=== PATIENT | female | born 1995 | race Caucasian/White ===

== ENCOUNTER 2016-10-27 18:38 | Emergency (ER) | payer MEDICAID ==
[~2016-10-27] VITALS: Ht 162.6 cm; Wt 64.4 kg
[~2016-10-27 18:38] MED LIST: CLON1TAB PO; CLONADINE PO; FLUO10TA PO; FLUO20CA19 PO; LISD40CA PO; PNV1TABL11 PO
[2016-10-27] MEDS ORDERED: SODIUM CHLORIDE 0.9% 1,000ML IVBOLUS ONE (19:30)
[2016-10-27] MEDS ORDERED: SODIUM CHLORIDE FLUSH 10ML SYR IVF ONE (19:30)
[2016-10-27] MEDS ORDERED: ONDANSETRON 2MG/ML, 2ML IVPush ONE (19:30)
[2016-10-27] MEDS ORDERED: KETOROLAC 30 MG/1 ML ONE (19:53)
[2016-10-27] MEDS ORDERED: ONDANSETRON 2MG/ML, 2ML ONE (19:54)
[2016-10-27 19:55] LABS: BLOOD UREA NITROGEN 8 mg/dL (7-18)
[2016-10-27] MEDS ORDERED: KETOROLAC 30 MG/1 ML IVPush ONE (20:00)
[2016-10-27 21:30] VITALS: BP 125/50
== END 2016-10-27 21:32 | disposition home or self-care (01) ==
LOC: ED 21:26
DX: R10.2 Pelvic and perineal pain (principal)
CPT/HCPCS: 36415; 76830; 80048; 81003; 82040; 84703; 85025; 96374; 96375; 99285; J1885; J2405

== ENCOUNTER 2017-01-21 20:29 | Observation (INO) | payer MEDICAID ==
[~2017-01-21] VITALS: Ht 162.6 cm; Wt 53.5 kg
[~2017-01-21 20:29] MED LIST changes: -LISD40CA PO; +LISD40CA3 PO
[2017-01-21 21:08] LABS: HEMATOCRIT 39.2 % (34.6-47.8); HEMOGLOBIN 13.1 g/dL (11.7-16.4); WHITE BLOOD COUNT 6.3 x10^3/uL (3.4-10)
[2017-01-21 21:18] LABS: ASPARTATE AMINO TRANSFERASE 14 U/L (15-37); BLOOD UREA NITROGEN 6 mg/dL (7-18)
[2017-01-21] MEDS ORDERED: SODIUM CHLORIDE 0.9% 1,000 ML IV ONE (23:01)
[2017-01-21] MEDS ORDERED: SODIUM CHLORIDE 0.9% 1,000ML IVBOLUS ONE (23:30)
[2017-01-21] MEDS ORDERED: SODIUM CHLORIDE FLUSH 10ML SYR IVF ONE (23:30)
[2017-01-21] MEDS ORDERED: SODIUM CHLORIDE FLUSH 10ML SYR IVF PRN (23:30)
[2017-01-22 01:28] VITALS: BP 123/85
[2017-01-22 02:00] VITALS: BP 120/86
== END 2017-01-22 09:02 | disposition home or self-care (01) ==
LOC: ED 22:39 → EDIP 23:01 → INTOOBSV 23:01 → 3NE 23:43 → UNDODISIN 01-22 09:02
PROVIDERS: ADMIT Obstetrics & Gynecology; ATTEND Obstetrics & Gynecology
DX: O26.891 Other specified pregnancy related conditions, first trimester (principal); R10.32 Left lower quadrant pain; O34.81 Maternal care for other abnormalities of pelvic organs, first trimester; N83.202 Unspecified ovarian cyst, left side; Z3A.01 Less than 8 weeks gestation of pregnancy; M22.40 Chondromalacia patellae, unspecified knee
CPT/HCPCS: 36415; 76801; 80053; 81003; 84702; 85025; 86850; 86900; 86901; 96360; 96361; 99285; G0378; J7030

== ENCOUNTER 2017-01-31 21:11 | Emergency (ER) | payer MEDICAID ==
[~2017-01-31] VITALS: Ht 162.6 cm; Wt 62.8 kg
[2017-01-31 22:12] LABS: HEMATOCRIT 35.5 % (34.6-47.8); HEMOGLOBIN 11.8 g/dL (11.7-16.4); WHITE BLOOD COUNT 5.7 x10^3/uL (3.4-10)
[2017-01-31 23:34] VITALS: BP 106/76
== END 2017-01-31 23:36 | disposition home or self-care (01) ==
LOC: ED 22:19
DX: O46.91 Antepartum hemorrhage, unspecified, first trimester (principal); Z3A.01 Less than 8 weeks gestation of pregnancy
CPT/HCPCS: 36415; 81003; 84702; 85025; 99284

== ENCOUNTER 2017-03-12 14:40 | Emergency (ER) | payer MEDICAID ==
[~2017-03-12] VITALS: Ht 162.6 cm; Wt 62.0 kg
[2017-03-12 16:49] VITALS: BP 123/64
== END 2017-03-12 16:55 | disposition home or self-care (01) ==
LOC: ED 15:15
DX: O9A.211 Injury, poisoning and certain other consequences of external causes complicating pregnancy, first trimester (principal); G89.11 Acute pain due to trauma; Z3A.12 12 weeks gestation of pregnancy; W19.XXXA Unspecified fall, initial encounter; Y93.89 Activity, other specified; Y92.89 Other specified places as the place of occurrence of the external cause; Y99.8 Other external cause status
CPT/HCPCS: 76801; 99284

== ENCOUNTER 2017-09-15 17:17 | Inpatient (IN) | payer MEDICAID ==
[~2017-09-15] VITALS: Ht 162.6 cm; Wt 73.0 kg
[~2017-09-15 17:17] MED LIST changes: +PREN1TAB10 PO
[2017-09-15] MEDS ORDERED: SODIUM CHLORIDE FLUSH 10ML SYR IVF ONE (18:00)
[2017-09-15 18:24] LABS: BASOPHILS # (AUTO) 0.01 x10^3/uL (0-0.1); BASOPHILS % (AUTO) 0 % (0-1); EOSINOPHILS % (AUTO) 2 % (1-7); LYMPHOCYTES # (AUTO) 2.29 x10^3/uL (1-3.4); LYMPHOCYTES % (AUTO) 50 % (22-44); MD NO; MEAN CORPUSCULAR HEMOGLOBIN 29.4 pg (27.0-34.8); MEAN CORPUSCULAR HGB CONC 33.3 g/dL (32.4-35.8); MEAN CORPUSCULAR VOLUME 88.3 fL (80-100); MEAN PLATELET VOLUME 9.2 fL (7.4-10.4); MONOCYTES # (AUTO) 0.42 x10^3/uL (0.2-0.8); MONOCYTES % (AUTO) 9 % (2-9); NEUTROPHILS # (AUTO) 1.75 x10^3/uL (1.8-6.8); NEUTROPHILS % (AUTO) 38 % (42-75); PLATELET COUNT 259 x10^3/uL (130-400); RED BLOOD COUNT 3.99 x10^6/uL (3.82-5.3); RED CELL DISTRIBUTION WIDTH 12.9 % (9.6-15.2)
[2017-09-15 18:31] LABS: ALANINE AMINOTRANSFERASE 34 U/L (12-78); ALBUMIN 2.8 g/dL (3.4-5.0); ANION GAP 7 mmol/L (5-15); CALCIUM 7.9 mg/dL (8.5-10.1); CHLORIDE 114 mmol/L (98-107); CREATININE 0.77 mg/dL (0.55-1.02)
[2017-09-15 18:33] LABS: CULTURE INDICATED? YES; MICROSCOPIC INDICATED
[2017-09-15 18:36] LABS: ALKALINE PHOSPHATASE 183 U/L (45-117); BILIRUBIN,TOTAL 0.3 mg/dL (0.2-1.0); FREE T4 (FREE THYROXINE) 0.95 ng/dL (0.76-1.46); TOTAL PROTEIN 6.5 g/dL (6.4-8.2); TROPONIN I < 0.015 ng/mL (0.000-0.045)
[2017-09-15] MEDS ORDERED: hydrALAzine 20 MG/ML, 1ML IV ONE (19:30)
[2017-09-15] MEDS ORDERED: hydrALAzine 20 MG/ML, 1ML ONE (19:41)
[2017-09-15] MEDS ORDERED: POLYETHYLENE GLYCOL 17 GM PACKET PO PRN (20:00)
[2017-09-15] MEDS ORDERED: BISACODYL 10 MG SUPP PR PRN (20:00)
[2017-09-15] MEDS ORDERED: hydrALAzine 20 MG/ML, 1ML IVPush PRN (20:00)
[2017-09-15 20:29] VITALS: BP 143/78
[2017-09-15] MEDS: SODIUM CHLORIDE FLUSH 10ML SYR IVF SCH (21:46)
[2017-09-15] MEDS: ACETAMINOPHEN 325 MG TABLET PO PRN (22:14)
[2017-09-16 00:45] LABS: TROPONIN I < 0.015 ng/mL (0.000-0.045)
[2017-09-16 03:30] VITALS: BP 126/80
[2017-09-16 05:15] LABS: MEAN CORPUSCULAR HEMOGLOBIN 29.3 pg (27.0-34.8); MEAN CORPUSCULAR VOLUME 88.8 fL (80-100); MEAN PLATELET VOLUME 8.9 fL (7.4-10.4); PLATELET COUNT 273 x10^3/uL (130-400); RED BLOOD COUNT 4.01 x10^6/uL (3.82-5.3); RED CELL DISTRIBUTION WIDTH 13.2 % (9.6-15.2)
[2017-09-16 05:50] LABS: MD YES
[2017-09-16 05:52] LABS: LYMPH#(MANUAL) 2.18 x10^3/uL (1-3.4); LYMPHS% (MANUAL) 56 % (22-44); MONOS% (MANUAL) 5 % (2-9); SEG#(MANUAL) 1.52 x10^3/uL (1.8-6.8); SEGS% (MANUAL) 39 % (42-75)
[2017-09-16 05:53] LABS: <PLATELET ESTIMATE> ADEQUATE; <PLT MORPHOLOGY> NORMAL PLT MORPH; <RBC MORPHOLOGY> NORMAL
[2017-09-16 06:51] LABS: ALANINE AMINOTRANSFERASE 29 U/L (12-78); ALBUMIN 2.7 g/dL (3.4-5.0); ANION GAP 10 mmol/L (5-15); CALCIUM 7.9 mg/dL (8.5-10.1); CHLORIDE 116 mmol/L (98-107); CREATININE 0.77 mg/dL (0.55-1.02)
[2017-09-16 06:55] LABS: ALKALINE PHOSPHATASE 168 U/L (45-117); BILIRUBIN,TOTAL 0.5 mg/dL (0.2-1.0); TOTAL PROTEIN 6.2 g/dL (6.4-8.2); TROPONIN I < 0.015 ng/mL (0.000-0.045)
[2017-09-16 07:12] VITALS: BP 139/80
[2017-09-16] MEDS: SENNA/DOCUSATE TABLET PO SCH (07:53)
[2017-09-16] MEDS: SODIUM CHLORIDE FLUSH 10ML SYR IVF SCH ×2 (07:54→21:00)
[2017-09-16] MEDS: ACETAMINOPHEN 325 MG TABLET PO PRN (07:58)
[2017-09-16 14:43] VITALS: BP 128/75
[2017-09-16 19:03] VITALS: BP 121/72
[2017-09-17 01:40] VITALS: BP 149/85
[2017-09-17 07:19] VITALS: BP 117/77
[2017-09-17] MEDS: SODIUM CHLORIDE FLUSH 10ML SYR IVF SCH (09:07)
[2017-09-17] MEDS: SENNA/DOCUSATE TABLET PO SCH (09:07)
== END 2017-09-17 11:35 | disposition home or self-care (01) | DRG 776 ==
LOC: ED 19:40 → EDIP 20:04 → 5SO 20:15 → DCLOUNGE 09-17 11:30
PROVIDERS: ADMIT Hospitalist; ATTEND Hospitalist
DX: O99.43 Diseases of the circulatory system complicating the puerperium (principal); E87.0 Hyperosmolality and hypernatremia; E44.0 Moderate protein-calorie malnutrition; E87.1 Hypo-osmolality and hyponatremia; I10 Essential (primary) hypertension; O16.5 Unspecified maternal hypertension, complicating the puerperium; O99.89 Other specified diseases and conditions complicating pregnancy, childbirth and the puerperium; Z82.49 Family history of ischemic heart disease and other diseases of the circulatory system; R07.89 Other chest pain; Z68.27 Body mass index [BMI] 27.0-27.9, adult; I49.8 Other specified cardiac arrhythmias
CPT/HCPCS: 36415; 71045; 80053; 81001; 83735; 83880; 84439; 84443; 84484; 85025; 85379; 87086; 87147; 93005; 93306; 93970; 96374; J0360

== ENCOUNTER 2018-01-21 11:40 | Emergency (ER) | payer MEDICAID ==
[~2018-01-21] VITALS: Ht 162.6 cm; Wt 60.0 kg
[2018-01-21 11:52] VITALS: BP 106/65
== END 2018-01-21 12:05 | disposition left against medical advice (07) ==
LOC: ED 11:59
DX: R07.9 Chest pain, unspecified (principal); Z53.21 Procedure and treatment not carried out due to patient leaving prior to being seen by health care provider
CPT/HCPCS: 93005

== ENCOUNTER 2018-03-18 19:56 | Emergency (ER) | payer MEDICAID ==
[~2018-03-18] VITALS: Ht 162.6 cm; Wt 60.2 kg
[2018-03-18 20:14] VITALS: BP 108/76
== END 2018-03-18 21:43 | disposition home or self-care (01) ==
LOC: ED 20:31
DX: S16.1XXA Strain of muscle, fascia and tendon at neck level, initial encounter (principal); W01.0XXA Fall on same level from slipping, tripping and stumbling without subsequent striking against object, initial encounter; Y93.89 Activity, other specified; Y92.89 Other specified places as the place of occurrence of the external cause; Y99.8 Other external cause status
CPT/HCPCS: 71046; 72050; 99284

== ENCOUNTER 2018-08-06 11:18 | Emergency (ER) | payer MEDICAID ==
[~2018-08-06] VITALS: Ht 162.6 cm; Wt 58.0 kg
--- NOTE | 2018-08-06 12:02 | NUR ---
PT TO ROOM AFTER XRAY
--- NOTE | 2018-08-06 12:12 | NUR ---
PT PRESENTS TO ED WITH INCRAESED HR/PALPITATIONS AFTER GLF. EXREMETIY XRAY DONE. PT C/O 10 CP, HR 103
[2018-08-06 12:14] VITALS: BP 132/49
== END 2018-08-06 12:46 | disposition home or self-care (01) ==
LOC: ED 12:20
DX: S60.222A Contusion of left hand, initial encounter (principal); R07.89 Other chest pain; M22.40 Chondromalacia patellae, unspecified knee; Z98.890 Other specified postprocedural states; W19.XXXA Unspecified fall, initial encounter; Y93.89 Activity, other specified; Y92.89 Other specified places as the place of occurrence of the external cause; Y99.8 Other external cause status
CPT/HCPCS: 71046; 93005; 99283

== ENCOUNTER 2018-08-25 08:24 | Emergency (ER) | payer MEDICAID ==
[~2018-08-25] VITALS: Ht 162.6 cm; Wt 58.0 kg
--- NOTE | 2018-08-25 08:45 | NUR ---
PT AMBULATORY TO ROOM 14 W/ C/O ITCHING, BURNING STARTED 3 DAYS AGO. PT ALSO STATES DIFFUSE LOWER PELVIC ABD PAIN X 3 DAYS ON/OFF. PT RATES PAIN 06/09. PT IS CONCERNED SHE STATES SHE JUST GOT A NEW SEXUAL PARTNER. DENIES DC AT THIS TIME. PT RESTING ON GURNEY. HONEYCUTT.
--- NOTE | 2018-08-25 08:49 | NUR ---
REPORT GIVEN TO PRANEETH STAHL.
[2018-08-25] MEDS ORDERED: AZITHROMYCIN 250 MG TABLET PO ONE (09:00)
[2018-08-25] MEDS ORDERED: CEFTRIAXONE 250 MG IM ONE (09:00)
[2018-08-25 09:10] LABS: HCG UR SG 1.035 (1.003-1.030)
--- NOTE | 2018-08-25 09:17 | NUR ---
provider at bedside performing pelvic exam
[2018-08-25 09:25] LABS: MICROSCOPIC INDICATED
--- NOTE | 2018-08-25 09:25 | NUR ---
Provider to cancel abx after exam/discussion w/ patient-editorial writer charted as not admin per provider
[2018-08-25 09:26] LABS: CULTURE INDICATED? YES
--- NOTE | 2018-08-25 09:50 | NUR ---
Resting in bed w/ call jessica in hand/side rails up. Given water/saltines/ additional blanket provided. updated on estimated eta. (testing results almost nearly completed)
[2018-08-25 10:08] LABS: CLUE CELLS NONE SEEN (NONE SEEN); WET PREP WBCS NONE SEEN (FEW)
--- NOTE | 2018-08-25 10:15 | NUR ---
reviewed plan for repeat diflucan admin ( take in 3 days if vaginal discomfort/discharge remains). advised to watch for call back w/ potential culture results. to return for further care if sxs persist or worsen
[2018-08-25] MEDS ORDERED: FLUCONAZOLE 100 MG TABLET ONE (10:18)
[2018-08-25 10:28] VITALS: BP 101/58
[2018-08-25] MEDS ORDERED: FLUCONAZOLE 100 MG TABLET PO ONE (10:30)
== END 2018-08-25 10:31 | disposition home or self-care (01) ==
LOC: ED 10:10
DX: B37.3 Candidiasis of vulva and vagina (principal)
CPT/HCPCS: 81001; 81025; 87086; 87210; 87491; 87591; 87808; 99283

== ENCOUNTER 2018-08-30 02:27 | Emergency (ER) | payer MEDICAID ==
[~2018-08-30] VITALS: Ht 162.6 cm; Wt 57.2 kg
[2018-08-30 02:29] VITALS: BP 102/70
--- NOTE | 2018-08-30 02:45 | NUR ---
PT. C/O VAGINAL ITCHING X 1 WEEK; WAS SEEN HERE AND GIVEN DIFLUCAN. STILL ITCHING. PEYMAN REYNA HAS BEEN IN TO [facility]. PT. IN GOWN NOW.
== END 2018-08-30 03:32 | disposition home or self-care (01) ==
LOC: ED 03:10
DX: B37.3 Candidiasis of vulva and vagina (principal)
CPT/HCPCS: 99283

== ENCOUNTER 2018-10-09 08:34 | Emergency (ER) | payer MEDICAID ==
[~2018-10-09] VITALS: Ht 162.6 cm; Wt 56.7 kg
--- NOTE | 2018-10-09 08:41 | NUR ---
ABD PAIN, ONSET THIS AM,+ NAUSEA, "KNOT IN UMBILICAL AREA" per triage note pt walked in the rm with stable gait from marilin
--- NOTE | 2018-10-09 08:49 | NUR ---
pt is in rm vss stable pt stated " i drank a lot of alcohol a lot last night "
[2018-10-09] MEDS ORDERED: MAALOX/HYOSCYAMINE/LIDOCAINE 45 ML BTL PO ONE (09:00)
[2018-10-09] MEDS ORDERED: MAALOX/HYOSCYAMINE/LIDOCAINE 45 ML BTL ONE (09:05)
--- NOTE | 2018-10-09 09:09 | NUR ---
given urine cup for ua and gi cocktail for pain
--- NOTE | 2018-10-09 09:26 | NUR ---
mindy in lab pt is talkin on the phone vss stable
[2018-10-09 09:28] LABS: BASOPHILS # (AUTO) 0.02 x10^3/uL (0-0.1); BASOPHILS % (AUTO) 1 % (0-1); EOSINOPHILS # (AUTO) 0.03 x10^3/uL (0-0.4); EOSINOPHILS % (AUTO) 1 % (1-7); LYMPHOCYTES # (AUTO) 1.77 x10^3/uL (1-3.4); LYMPHOCYTES % (AUTO) 49 % (22-44); MD NO; MEAN CORPUSCULAR HGB CONC 33.6 g/dL (32.4-35.8); MEAN CORPUSCULAR VOLUME 86.5 fL (80-100); MONOCYTES # (AUTO) 0.45 x10^3/uL (0.2-0.8); MONOCYTES % (AUTO) 13 % (2-9); NEUTROPHILS # (AUTO) 1.32 x10^3/uL (1.8-6.8); NEUTROPHILS % (AUTO) 37 % (42-75); PLATELET COUNT 231 x10^3/uL (130-400); RED BLOOD COUNT 4.33 x10^6/uL (3.82-5.3); RED CELL DISTRIBUTION WIDTH 14.1 % (9.6-15.2)
[2018-10-09 09:29] LABS: ALANINE AMINOTRANSFERASE 70 U/L (12-78); ALBUMIN 3.6 g/dL (3.4-5.0); ANION GAP 3 mmol/L (5-15); CALCIUM 8.1 mg/dL (8.5-10.1); CHLORIDE 111 mmol/L (98-107); CREATININE 0.79 mg/dL (0.55-1.02)
[2018-10-09 09:34] LABS: ALKALINE PHOSPHATASE 106 U/L (45-117); BILIRUBIN,TOTAL 0.2 mg/dL (0.2-1.0)
[2018-10-09 09:39] LABS: MICROSCOPIC NOT IND
[2018-10-09 09:47] LABS: CULTURE INDICATED? NO
[2018-10-09] MEDS ORDERED: POTASSIUM CHLORIDE 20 MEQ TAB.ER.PRT PO ONE (10:30)
[2018-10-09] MEDS ORDERED: POTASSIUM CHLORIDE 20 MEQ TAB.ER.PRT ONE (11:02)
--- NOTE | 2018-10-09 11:23 | NUR ---
given med k dur and dc instruction pt understood well
[2018-10-09 11:24] VITALS: BP 110/68
== END 2018-10-09 11:26 | disposition home or self-care (01) ==
LOC: ED 09:40
DX: K29.00 Acute gastritis without bleeding (principal); E87.6 Hypokalemia
CPT/HCPCS: 36415; 80053; 81003; 83690; 84703; 85025; 99283

== ENCOUNTER 2018-10-24 22:40 | Emergency (ER) | payer MEDICAID ==
[~2018-10-24] VITALS: Ht 162.6 cm; Wt 60.1 kg
--- NOTE | 2018-10-24 23:03 | NUR ---
PT RESTING ON GURNEY WITH HEADPHONES IN PLACE. HAVING PAINFUL URINATION AND NOTICES BLOOD WHEN SHE WIPES. PT HAD UNPROTECTED SEX 3 DAYS AGO. HAS HISTORY OF OVARIAN CYST AND IS WORRIED ONE RUPTURED.
[2018-10-24 23:42] LABS: CULTURE INDICATED? YES; HCG UR SG 1.009 (1.003-1.030); MICROSCOPIC AUTO
[2018-10-24] MEDS ORDERED: NITROFURANTOIN (MACROBID) 100 MG CAPSULE ONE (23:55)
[2018-10-25] MEDS ORDERED: NITROFURANTOIN (MACROBID) 100 MG CAPSULE PO ONE
--- NOTE | 2018-10-25 00:05 | NUR ---
Patient/Caregiver given discharge instructions and they have confirmed that they understand the instructions. Patient ambulatory with steady gait.
[2018-10-25 00:06] VITALS: BP 120/76
== END 2018-10-25 00:08 | disposition home or self-care (01) ==
LOC: ED 23:13
DX: N30.00 Acute cystitis without hematuria (principal)
CPT/HCPCS: 81001; 81025; 87077; 87086; 87186; 99283

== ENCOUNTER 2018-11-15 09:30 | Emergency (ER) | payer MEDICAID ==
--- NOTE | 2018-11-15 09:45 | NUR ---
CALLED NOT IN LOBBY
--- NOTE | 2018-11-15 09:50 | NUR ---
SECOND CALL NO ANSWER.
--- NOTE | 2018-11-15 10:18 | NUR ---
NOT IN LOBBY
== END 2018-11-15 10:20 | disposition left against medical advice (07) ==
LOC: ED 10:14

== ENCOUNTER 2019-01-16 10:40 | Emergency (ER) | payer MEDICAID ==
[~2019-01-16] VITALS: Ht 162.6 cm; Wt 59.0 kg
[2019-01-16 10:43] VITALS: BP 112/58
== END 2019-01-16 11:43 | disposition home or self-care (01) ==
LOC: ED 11:24
DX: S61.215A Laceration without foreign body of left ring finger without damage to nail, initial encounter (principal); X58.XXXA Exposure to other specified factors, initial encounter; Y93.89 Activity, other specified; Y92.89 Other specified places as the place of occurrence of the external cause; Y99.8 Other external cause status
CPT/HCPCS: 29130; 99283

== ENCOUNTER 2019-03-24 22:49 | Emergency (ER) | payer MEDICAID ==
[~2019-03-24] VITALS: Ht 162.6 cm; Wt 59.0 kg
[2019-03-24 23:21] LABS: BASOPHILS # (AUTO) 0.02 x10^3/uL (0-0.1); BASOPHILS % (AUTO) 0 % (0-1); EOSINOPHILS # (AUTO) 0.09 x10^3/uL (0-0.4); EOSINOPHILS % (AUTO) 1 % (1-7); LYMPHOCYTES # (AUTO) 2.34 x10^3/uL (1-3.4); LYMPHOCYTES % (AUTO) 34 % (22-44); MD NO; MEAN CORPUSCULAR HEMOGLOBIN 29.7 pg (27.0-34.8); MEAN CORPUSCULAR HGB CONC 32.5 g/dL (32.4-35.8); MEAN CORPUSCULAR VOLUME 91.4 fL (80-100); MEAN PLATELET VOLUME 8.5 fL (7.4-10.4); MONOCYTES # (AUTO) 0.49 x10^3/uL (0.2-0.8); MONOCYTES % (AUTO) 7 % (2-9); NEUTROPHILS # (AUTO) 4.03 x10^3/uL (1.8-6.8); NEUTROPHILS % (AUTO) 58 % (42-75); PLATELET COUNT 279 x10^3/uL (130-400); RED BLOOD COUNT 4.05 x10^6/uL (3.82-5.3); RED CELL DISTRIBUTION WIDTH 13.3 % (9.6-15.2)
[2019-03-24 23:28] LABS: CLUE CELLS NONE SEEN (NONE SEEN)
[2019-03-24 23:29] LABS: WET PREP WBCS MODERATE (FEW)
[2019-03-24 23:34] LABS: ALANINE AMINOTRANSFERASE 23 U/L (12-78); ALBUMIN 3.7 g/dL (3.4-5.0); ANION GAP 5 mmol/L (5-15); CALCIUM 8.8 mg/dL (8.5-10.1); CHLORIDE 110 mmol/L (98-107); CREATININE 0.91 mg/dL (0.55-1.02)
[2019-03-24 23:38] LABS: ALKALINE PHOSPHATASE 107 U/L (45-117); BILIRUBIN,TOTAL 0.3 mg/dL (0.2-1.0); TOTAL PROTEIN 7.4 g/dL (6.4-8.2)
[2019-03-24] MEDS ORDERED: metroNIDAZOLE 500 MG TABLET ONE (23:48)
[2019-03-24 23:51] LABS: CULTURE INDICATED? YES; MICROSCOPIC INDICATED
[2019-03-25] MEDS ORDERED: metroNIDAZOLE 500 MG TABLET PO ONE
[2019-03-25] MEDS ORDERED: HYDROcodone/APAP 5/325 TABLET PO ONE
[2019-03-25] MEDS ORDERED: HYDROcodone/APAP 5/325 TABLET ONE (00:22)
--- NOTE | 2019-03-25 01:02 | NUR ---
patient cleared for discharge. no noted acute distress. ambulatory to waiting room without complications. patient verbalized understanding of education and self care at home.
[2019-03-25 01:03] VITALS: BP 112/84
== END 2019-03-25 01:04 | disposition home or self-care (01) ==
LOC: ED 23:10
DX: A59.01 Trichomonal vulvovaginitis (principal)
CPT/HCPCS: 36415; 76830; 80053; 81001; 84702; 85025; 87086; 87210; 87491; 87591; 87808; 99284

== ENCOUNTER 2019-04-06 10:01 | Emergency (ER) | payer MEDICAID ==
--- NOTE | 2019-04-06 10:23 | NUR ---
NA X 1 AT 1025
--- NOTE | 2019-04-06 10:29 | NUR ---
NA X 2 @ 1030
--- NOTE | 2019-04-06 10:40 | NUR ---
NA X 3 @ 1040
== END 2019-04-06 10:44 | disposition left against medical advice (07) ==
LOC: ED 10:38
DX: R30.9 Painful micturition, unspecified (principal); Z53.21 Procedure and treatment not carried out due to patient leaving prior to being seen by health care provider

== ENCOUNTER 2019-06-02 03:54 | Emergency (ER) | payer MEDICAID ==
[~2019-06-02] VITALS: Ht 162.6 cm; Wt 62.4 kg
[2019-06-02 03:56] VITALS: BP 110/63
--- NOTE | 2019-06-02 04:35 | NUR ---
24Y F COMES IN WITH C/O RIGHT THUMB PAIN UNABLE TO MOVE RIGHT THUMB AFTER SHUTTING IT IN CAR DOOR AT 0030. PT SITTING ON CHAIR IN CORNER. TANGELA.
[2019-06-02] MEDS ORDERED: LIDOCAINE-MPF 1%, 5ML ONE (04:55)
[2019-06-02] MEDS ORDERED: LIDOCAINE-MPF 1%, 5ML INFIL ONE (05:00)
--- NOTE | 2019-06-02 05:06 | NUR ---
PT TO XRAY AT THIS TIME
--- NOTE | 2019-06-02 05:18 | NUR ---
PT BACK FROM XRAY
--- NOTE | 2019-06-02 05:43 | NUR ---
PA AT BEDSIDE
[2019-06-02] MEDS ORDERED: NEOSPORIN OINT. PKT 1 PACKET ONE (05:57)
== END 2019-06-02 06:09 | disposition home or self-care (01) ==
LOC: ED 05:15
DX: S60.011A Contusion of right thumb without damage to nail, initial encounter (principal); Z98.890 Other specified postprocedural states; X58.XXXA Exposure to other specified factors, initial encounter; Y93.89 Activity, other specified; Y92.488 Other paved roadways as the place of occurrence of the external cause; Y99.8 Other external cause status
CPT/HCPCS: 11740; 99283

== ENCOUNTER 2019-12-26 18:34 | Emergency (ER) | payer MEDICAID ==
[~2019-12-26] VITALS: Ht 162.6 cm; Wt 59.1 kg
[2019-12-26 19:22] LABS: BASOPHILS # (AUTO) 0.01 x10^3/uL (0-0.1); BASOPHILS % (AUTO) 0 % (0-1); EOSINOPHILS # (AUTO) 0.05 x10^3/uL (0-0.4); EOSINOPHILS % (AUTO) 1 % (1-7); LYMPHOCYTES # (AUTO) 2.28 x10^3/uL (1-3.4); LYMPHOCYTES % (AUTO) 40 % (22-44); MD NO; MEAN CORPUSCULAR HEMOGLOBIN 28.9 pg (27.0-34.8); MEAN CORPUSCULAR HGB CONC 33.2 g/dL (32.4-35.8); MEAN PLATELET VOLUME 9.3 fL (7.4-10.4); MONOCYTES # (AUTO) 0.46 x10^3/uL (0.2-0.8); MONOCYTES % (AUTO) 8 % (2-9); NEUTROPHILS # (AUTO) 2.93 x10^3/uL (1.8-6.8); NEUTROPHILS % (AUTO) 51 % (42-75); PLATELET COUNT 241 x10^3/uL (130-400); RED BLOOD COUNT 4.23 x10^6/uL (3.82-5.3); RED CELL DISTRIBUTION WIDTH 13.1 % (9.6-15.2)
--- NOTE | 2019-12-26 19:22 | NUR ---
PT REPORTS LOWER ABD CRAMPING X2 DAYS, DENIES BLEEDING AT THIS TIME. 7 WEEKS AB1. LMP 11/04/19. PLACED VITAL SIGNS MONITORS, AND CALL LIGHT WITHIN REACH.
--- NOTE | 2019-12-26 19:30 | NUR ---
URINE SAMPLE COLLECTED. PT TAKEN FOR U/S.
[2019-12-26 19:31] LABS: ALBUMIN 3.8 g/dL (3.4-5.0); ANION GAP 6 mmol/L (5-15); CHLORIDE 109 mmol/L (98-107); CREATININE 0.85 mg/dL (0.55-1.02)
[2019-12-26 19:44] LABS: MICROSCOPIC AUTO
[2019-12-26 20:39] VITALS: BP 104/53
--- NOTE | 2019-12-26 20:40 | NUR ---
RESTING ON NAD. RONN VSS. CALL LIGHT WITHIN REACH.
== END 2019-12-26 21:17 ==
LOC: ED 21:11
DX: O26.891 Other specified pregnancy related conditions, first trimester (principal); R10.30 Lower abdominal pain, unspecified; R10.2 Pelvic and perineal pain; Z3A.01 Less than 8 weeks gestation of pregnancy
CPT/HCPCS: 36415; 76801; 80048; 81001; 82040; 84702; 85025; 86901; 99284

== ENCOUNTER 2020-02-14 17:56 | Emergency (ER) | payer MEDICAID ==
[~2020-02-14] VITALS: Ht 162.6 cm; Wt 59.7 kg
--- NOTE | 2020-02-14 18:22 | NUR ---
BREAK RN: THIS IS A 24 YO FEMALE COMING IN FOR "I HAVEN'T FELT MY BABY MOVE TODAY" WITH MILD CRAMPING THROUGHOUT THE DAY, DENIES VAGINAL BLEEDING/SPOTTING. PATIENT IS APPROX 14 WEEKS , , LMP 11/04/19. DENIES ANY OTHER SYMPTOMS. A&OX4, GCS 15, DENIES N/V/ABD PAIN. MONITORING IN PLACE, VSS, ZAKIYAN AT THIS TIME, IN ROOM. CALL LIGHT IN REACH
[2020-02-14 18:46] LABS: BASOPHILS # (AUTO) 0.02 x10^3/uL (0-0.1); BASOPHILS % (AUTO) 0 % (0-1); EOSINOPHILS # (AUTO) 0.08 x10^3/uL (0-0.4); EOSINOPHILS % (AUTO) 1 % (1-7); LYMPHOCYTES # (AUTO) 2.01 x10^3/uL (1-3.4); LYMPHOCYTES % (AUTO) 30 % (22-44); MD NO; MEAN CORPUSCULAR HEMOGLOBIN 29.2 pg (27.0-34.8); MEAN CORPUSCULAR HGB CONC 33.1 g/dL (32.4-35.8); MEAN PLATELET VOLUME 9.4 fL (7.4-10.4); MONOCYTES # (AUTO) 0.45 x10^3/uL (0.2-0.8); MONOCYTES % (AUTO) 7 % (2-9); NEUTROPHILS # (AUTO) 4.19 x10^3/uL (1.8-6.8); NEUTROPHILS % (AUTO) 62 % (42-75); PLATELET COUNT 234 x10^3/uL (130-400)
[2020-02-14 18:50] LABS: ALBUMIN 3.4 g/dL (3.4-5.0); ANION GAP 7 mmol/L (5-15); CHLORIDE 109 mmol/L (98-107); CREATININE 0.57 mg/dL (0.55-1.02)
[2020-02-14] MEDS ORDERED: PROG200C10 PO (19:14)
[2020-02-14] MEDS ORDERED: PRENATAL VITAMIN (19:18)
--- NOTE | 2020-02-14 19:20 | NUR ---
PT SITTING QUIETLY ON GURNEY, RESP EVEN & UNLABORED, SPEECH CLEAR, SKIN WNL. REPORTS FEELING MOVEMENT RECENTLY. PT'S SPOUSE IN ROOM.
[2020-02-14 20:00] VITALS: BP 104/70
== END 2020-02-14 20:06 | disposition home or self-care (01) ==
LOC: ED 19:14
DX: O26.892 Other specified pregnancy related conditions, second trimester (principal); Z3A.16 16 weeks gestation of pregnancy
CPT/HCPCS: 36415; 76815; 80048; 82040; 85025; 99284

== ENCOUNTER 2020-03-23 10:59 | Emergency (ER) | payer MEDICAID ==
[~2020-03-23] VITALS: Ht 162.6 cm; Wt 68.7 kg
[~2020-03-23 10:59] MED LIST changes: +PRENATAL VITAMIN; +PROG200C10 PO
[2020-03-23 11:19] VITALS: BP 102/76
[2020-03-23] MEDS ORDERED: SODIUM CHLORIDE 0.9% 1,000ML IVBOLUS ONE (11:30)
[2020-03-23] MEDS ORDERED: SODIUM CHLORIDE FLUSH 10ML SYR IVF ONE (11:30)
[2020-03-23 11:57] LABS: BASOPHILS % (AUTO) 0 % (0-1); EOSINOPHILS % (AUTO) 0 % (1-7); LYMPHOCYTES % (AUTO) 12 % (22-44); MEAN CORPUSCULAR HEMOGLOBIN 28.6 pg (27.0-34.8); MEAN CORPUSCULAR HGB CONC 33.1 g/dL (32.4-35.8); MEAN PLATELET VOLUME 9.2 fL (7.4-10.4); MONOCYTES % (AUTO) 12 % (2-9); NEUTROPHILS % (AUTO) 76 % (42-75); PLATELET COUNT 190 x10^3/uL (130-400); RED BLOOD COUNT 4.21 x10^6/uL (3.82-5.3); RED CELL DISTRIBUTION WIDTH 13.2 % (9.6-15.2)
--- NOTE | 2020-03-23 11:58 | NUR ---
CASE MANAGER: PT TO ROOM FROM [facility]
[2020-03-23 12:04] LABS: ALANINE AMINOTRANSFERASE 16 U/L (12-78); ALBUMIN 3.5 g/dL (3.4-5.0); ANION GAP 7 mmol/L (5-15); CALCIUM 9.2 mg/dL (8.5-10.1); CHLORIDE 106 mmol/L (98-107); CREATININE 0.51 mg/dL (0.55-1.02)
[2020-03-23 12:06] LABS: ALKALINE PHOSPHATASE 89 U/L (45-117); BILIRUBIN,TOTAL 0.3 mg/dL (0.2-1.0); TOTAL PROTEIN 7.6 g/dL (6.4-8.2)
[2020-03-23 12:08] LABS: MD NO
== END 2020-03-23 12:51 | disposition home or self-care (01) ==
LOC: ED 11:35
DX: O99.512 Diseases of the respiratory system complicating pregnancy, second trimester (principal); U07.1 COVID-19; O26.892 Other specified pregnancy related conditions, second trimester; B34.9 Viral infection, unspecified; R00.0 Tachycardia, unspecified; R94.31 Abnormal electrocardiogram [ECG] [EKG]; Z3A.20 20 weeks gestation of pregnancy
CPT/HCPCS: 36415; 71046; 80053; 85025; 87635; 93005; 99285

== ENCOUNTER 2020-04-21 20:40 | Emergency (ER) | payer MEDICAID ==
--- NOTE | 2020-04-21 20:52 | NUR ---
NIL X1
--- NOTE | 2020-04-21 21:00 | NUR ---
NIL X2
--- NOTE | 2020-04-21 21:11 | NUR ---
NILX3
--- NOTE | 2020-04-21 21:14 | NUR ---
PATIENT LEFT WITHOUT BEING SEEN. CALL PLACED TO L&D TO VERIFY PATIENT DID NOT GO UP TO THAT UNIT
== END 2020-04-21 21:16 | disposition left against medical advice (07) ==
LOC: ED 21:00
DX: R07.9 Chest pain, unspecified (principal); Z53.21 Procedure and treatment not carried out due to patient leaving prior to being seen by health care provider

== ENCOUNTER 2020-04-23 13:27 | Emergency (ER) | payer MEDICAID ==
[~2020-04-23] VITALS: Ht 162.6 cm; Wt 65.0 kg
[2020-04-23 14:56] LABS: BASOPHILS % (AUTO) 0 % (0-1); EOSINOPHILS % (AUTO) 1 % (1-7); LYMPHOCYTES % (AUTO) 21 % (22-44); MEAN CORPUSCULAR HEMOGLOBIN 29.2 pg (27.0-34.8); MEAN CORPUSCULAR HGB CONC 33.6 g/dL (32.4-35.8); MEAN PLATELET VOLUME 9.5 fL (7.4-10.4); MONOCYTES % (AUTO) 7 % (2-9); NEUTROPHILS % (AUTO) 71 % (42-75); PLATELET COUNT 202 x10^3/uL (130-400); RED BLOOD COUNT 3.77 x10^6/uL (3.82-5.3); RED CELL DISTRIBUTION WIDTH 13.9 % (9.6-15.2)
[2020-04-23 15:00] LABS: MD NO
[2020-04-23 15:07] LABS: ANION GAP 8 mmol/L (5-15); CALCIUM 8.9 mg/dL (8.5-10.1); CHLORIDE 111 mmol/L (98-107); CREATININE 0.49 mg/dL (0.55-1.02)
--- NOTE | 2020-04-23 15:22 | NUR ---
task rn: pt resting in [facility]. on cell phone. vss. nad
[2020-04-23 15:23] LABS: ALANINE AMINOTRANSFERASE 17 U/L (12-78)
[2020-04-23 15:27] LABS: ALKALINE PHOSPHATASE 94 U/L (45-117); BILIRUBIN,TOTAL 0.2 mg/dL (0.2-1.0); TOTAL PROTEIN 6.8 g/dL (6.4-8.2)
[2020-04-23 15:28] LABS: BILIRUBIN, DIRECT < 0.1 mg/dL (0.1-0.2); BILIRUBIN,INDIRECT 0.1 mg/dL (0.0-2.0)
[2020-04-23 15:52] VITALS: BP 100/61
== END 2020-04-23 16:05 | disposition home or self-care (01) ==
LOC: ED 13:50
DX: O26.892 Other specified pregnancy related conditions, second trimester (principal); R00.2 Palpitations; R00.0 Tachycardia, unspecified; R06.02 Shortness of breath; R06.00 Dyspnea, unspecified; Z3A.25 25 weeks gestation of pregnancy
CPT/HCPCS: 36415; 71045; 80048; 80076; 82040; 83880; 85025; 93005; 99285

== ENCOUNTER 2020-04-26 13:57 | Outpatient (CLI) | payer MEDICAID ==
[~2020-04-26] VITALS: Ht 162.6 cm; Wt 63.6 kg
[2020-04-26 15:35] VITALS: BP 111/56
[2020-04-26 18:29] LABS: MICROSCOPIC NOT IND
== END 2020-04-26 15:31 | disposition home or self-care (01) ==
LOC: LDOP 13:57
PROVIDERS: ATTEND Obstetrics & Gynecology
DX: O36.8120 Decreased fetal movements, second trimester, not applicable or unspecified (principal); Z3A.24 24 weeks gestation of pregnancy
CPT/HCPCS: 81003; 87086; 99201; G0463

== ENCOUNTER 2020-07-12 21:27 | Outpatient (CLI) | payer MEDICAID ==
[~2020-07-12] VITALS: Ht 162.6 cm; Wt 68.2 kg
[2020-07-12 21:44] VITALS: BP 104/59
[2020-07-12 22:19] LABS: MICROSCOPIC INDICATED
== END 2020-07-12 22:22 | disposition home or self-care (01) ==
LOC: LDOP 21:27
PROVIDERS: ATTEND Obstetrics & Gynecology
DX: O62.9 Abnormality of forces of labor, unspecified (principal); Z3A.35 35 weeks gestation of pregnancy
CPT/HCPCS: 59025; 81001; 87086

== ENCOUNTER 2020-08-17 21:16 | Emergency (ER) | payer MEDICAID ==
[~2020-08-17] VITALS: Ht 162.6 cm; Wt 64.3 kg
[2020-08-17 21:18] VITALS: BP 148/70
--- NOTE | 2020-08-17 21:54 | NUR ---
PT BIB POV. PER PT "I WAS HOSPITALIZED AT [facility] FOR A PE ON MY RIGHT LUNG AND I AM NOW HAVING CHEST PAIN", "I WANT TO KNOW WHAT PAIN MEDICATION I CAN TAKE WITH THE BLOOD THINNER". PT IS ON ELIQUIS. PT RESTING IN [facility], MONITORING IN PLACE, TANGELA AT THIS TIME, TM.
== END 2020-08-17 22:07 | disposition home or self-care (01) ==
LOC: ED 22:01
DX: R07.89 Other chest pain (principal); R00.0 Tachycardia, unspecified
CPT/HCPCS: 93005; 99283

== ENCOUNTER 2020-08-29 18:40 | Emergency (ER) | payer MEDICAID ==
[~2020-08-29] VITALS: Ht 162.6 cm; Wt 65.3 kg
--- NOTE | 2020-08-29 19:25 | NUR ---
Pt states hitting head on car door. Pt states being on blood thinners for a PE. Pt with no obvious signs of injury. Pt A&O x 4, + CSM x 4. Pt with no EAGLE, nauses, or neuro defecits. Will monitor.
[2020-08-29 20:43] VITALS: BP 114/60
--- NOTE | 2020-08-29 20:44 | NUR ---
Patient/Caregiver given discharge instructions and they have confirmed that they understand the instructions. Patient ambulatory with steady gait.
== END 2020-08-29 20:45 | disposition home or self-care (01) ==
LOC: ED 19:44
DX: S09.90XA Unspecified injury of head, initial encounter (principal); X58.XXXA Exposure to other specified factors, initial encounter; Y93.89 Activity, other specified; Y92.89 Other specified places as the place of occurrence of the external cause; Y99.8 Other external cause status
CPT/HCPCS: 70450; 99284

== ENCOUNTER 2020-09-11 18:12 | Emergency (ER) | payer MEDICAID ==
[~2020-09-11] VITALS: Ht 162.6 cm; Wt 64.5 kg
--- NOTE | 2020-09-11 18:50 | NUR ---
PT TO ROOM FROM LOBBY. INITIAL PT CONTACT. PT PRESENTS TO ED C/O "SEVERE HEADACHE" SINCE YESTERDAY. PT ALSO STATES HIT HEAD ON REFRIGERATOR TODAY, NO LOSS OF CONCIOUSNESS OR NECK PAIN. PT STATES ON BLOOD THINNER FOR "CLOT IN MY LUNG". PT DENIES ANY OTHER SYMPTOMS. PT SITTING UPRIGHT IN ROOM, MARIA TERESA HONEYCUTT. PT DENIES ANY NEEDS AT THIS TIME. AWAITING ERP. PT PLACED ON CONTINUOS MONITORING. CALL LIGHT AND PERSONAL BELONGINGS IN REACH. SIGNIFICANT OTHER AT BEDSIDE.
--- NOTE | 2020-09-11 19:00 | NUR ---
ERP AT BEDSIDE
[2020-09-11] MEDS ORDERED: METOCLOPRAMIDE 5 MG/ML, 2ML ONE (19:13)
[2020-09-11] MEDS ORDERED: DIPHENHYDRAMINE 50 MG/ML, 1ML ONE (19:13)
[2020-09-11] MEDS ORDERED: DIPHENHYDRAMINE 50 MG/ML, 1ML IVPush ONE (19:30)
[2020-09-11] MEDS ORDERED: SODIUM CHLORIDE 0.9% 1,000ML IVBOLUS ONE (19:30)
[2020-09-11] MEDS ORDERED: METOCLOPRAMIDE 5 MG/ML, 2ML IVPush ONE (19:30)
--- NOTE | 2020-09-11 19:49 | NUR ---
IV started, labeled and tubed to lab.
[2020-09-11 19:50] LABS: MEAN CORPUSCULAR HEMOGLOBIN 28.2 pg (27.0-34.8); MEAN CORPUSCULAR HGB CONC 32.8 g/dL (32.4-35.8); MEAN PLATELET VOLUME 9.1 fL (7.4-10.4); PLATELET COUNT 266 x10^3/uL (130-400); RED BLOOD COUNT 4.14 x10^6/uL (3.82-5.3); RED CELL DISTRIBUTION WIDTH 13.1 % (9.6-15.2)
--- NOTE | 2020-09-11 20:05 | NUR ---
PT TO IMAGING. PT DENIES ANY ADDITIONAL NEEDS AT THIS TIME. WARM BLANKET PROVIDED.
[2020-09-11 20:16] LABS: MD YES
[2020-09-11 20:20] LABS: <PLATELET ESTIMATE> ADEQUATE; <PLT MORPHOLOGY> NORMAL PLT MORPH; EOS#(MANUAL) 0.15 x10^3/uL (0.0-0.4); EOS% (MANUAL) 3 % (1-7); LYMPH#(MANUAL) 2.45 x10^3/uL (1-3.4); LYMPHS% (MANUAL) 50 % (22-44); MONOS% (MANUAL) 4 % (2-9); SEG#(MANUAL) 2.11 x10^3/uL (1.8-6.8); SEGS% (MANUAL) 43 % (42-75)
[2020-09-11 20:21] LABS: <RBC MORPHOLOGY> NORMAL
[2020-09-11 21:56] VITALS: BP 122/76
--- NOTE | 2020-09-11 21:56 | NUR ---
Patient given discharge instructions and they have confirmed that they understand the instructions. Patient ambulatory with steady gait.
== END 2020-09-11 21:59 | disposition home or self-care (01) ==
LOC: ED 19:28
DX: G44.219 Episodic tension-type headache, not intractable (principal); Z79.01 Long term (current) use of anticoagulants
CPT/HCPCS: 36415; 70450; 85025; 96361; 96374; 96375; 99284; J1200; J2765; J7030

== ENCOUNTER 2020-11-08 18:17 | Emergency (ER) | payer OTHER, MEDICAID ==
[~2020-11-08] VITALS: Ht 162.6 cm; Wt 63.3 kg
[2020-11-08] MEDS ORDERED: OMNIPAQUE 350 MG/ML, 100ML BOTTLE ONE (19:00)
[2020-11-08 19:11] LABS: BASOPHILS % (AUTO) 1 % (0-1); EOSINOPHILS % (AUTO) 1 % (1-7); LYMPHOCYTES % (AUTO) 40 % (22-44); MEAN CORPUSCULAR HEMOGLOBIN 28.2 pg (27.0-34.8); MEAN CORPUSCULAR HGB CONC 33.1 g/dL (32.4-35.8); MEAN PLATELET VOLUME 9.3 fL (7.4-10.4); MONOCYTES % (AUTO) 6 % (2-9); NEUTROPHILS % (AUTO) 52 % (42-75); PLATELET COUNT 281 x10^3/uL (130-400); RED CELL DISTRIBUTION WIDTH 13.9 % (9.6-15.2)
[2020-11-08 19:18] LABS: ALANINE AMINOTRANSFERASE 41 U/L (12-78); ALBUMIN 4.2 g/dL (3.4-5.0); ANION GAP 5 mmol/L (5-15); CHLORIDE 108 mmol/L (98-107)
[2020-11-08 19:20] LABS: ALKALINE PHOSPHATASE 106 U/L (45-117); BILIRUBIN,TOTAL 0.3 mg/dL (0.2-1.0); TOTAL PROTEIN 8.2 g/dL (6.4-8.2)
--- NOTE | 2020-11-08 20:04 | NUR ---
Patient presents to ER c/o palpitations intermittently x3 weeks after giving . Patient states shortly after giving , she was dx with a PE and was put on a blood thinner. Patient came off the blood thinner approx 1 week ago and has had increased palpitations. Patient is in NAD. Respirations even and unlabored.
[2020-11-08 21:33] VITALS: BP 100/51
--- NOTE | 2020-11-08 21:46 | NUR ---
Discharge instructions given. All questions and concerns addressed. Patient ambulatory with a steady gait. Belongings with patient.
== END 2020-11-08 21:47 | disposition home or self-care (01) ==
LOC: ED 20:31
DX: R07.2 Precordial pain (principal); R00.2 Palpitations; F41.9 Anxiety disorder, unspecified; R00.0 Tachycardia, unspecified
CPT/HCPCS: 36415; 71275; 80053; 85025; 93005; 99285; Q9967

== ENCOUNTER 2021-01-18 16:35 | Emergency (ER) | payer MEDICAID, OTHER ==
[~2021-01-18] VITALS: Ht 162.6 cm; Wt 62.6 kg
[2021-01-18 17:08] VITALS: BP 116/58
--- NOTE | 2021-01-18 17:11 | NUR ---
pt presents to ed with c/o intermittent numbness/tingling to LUE. pt denies CP/SOB. pt has hx of blood clots, recently stopped taking blood thinners. cms intact bilaterally, vss, nadn.
--- NOTE | 2021-01-18 17:36 | NUR ---
natasha Garrett at bedside for eval
--- NOTE | 2021-01-18 18:37 | NUR ---
pt educated on dc instruction,s verbalized understanding. nadn, ambulatory to dc desk with steady gait.
== END 2021-01-18 19:26 | disposition home or self-care (01) ==
LOC: ED 19:00
DX: M79.622 Pain in left upper arm (principal); M79.18 Myalgia, other site; Z86.711 Personal history of pulmonary embolism; Z88.0 Allergy status to penicillin
CPT/HCPCS: 93005; 99284

== ENCOUNTER 2021-02-27 14:41 | Emergency (ER) | payer OTHER, MEDICAID ==
[~2021-02-27] VITALS: Ht 162.6 cm; Wt 60.5 kg
[2021-02-27 14:45] VITALS: BP 127/97
== END 2021-02-27 16:09 | disposition left against medical advice (07) ==
LOC: ED 14:46
DX: R07.89 Other chest pain (principal); Z86.711 Personal history of pulmonary embolism